=== PATIENT | female | born 1950 | race Caucasian/White ===

== ENCOUNTER → 2019-07-25 | Outpatient (CLI) | payer MEDICARE ==
--- NOTE | 2019-07-25 12:30 | PCVCIMAG ---
APPROVED REPORT Study performed: 07/25/2019 09:22:32 Exam: Stress Echocardiogram Indication: Abn EKG, Pre-Op clearance Patient Location: Echo lab Stress Nurse: Kiya Anderson RN Room #: 2 Status: routine Ht: 5 ft 2 in HR: 70 bpm BP: 138/74 mmHg Rhythm: LBBB Medical History Medical History: Thyroid mass,, HTN Cardiac Risk Factors: HTN Previous Cardiac Procedures: none Pretest Chest Pain Characteristics: No chest pain Exercise History: Physically active Procedure The patient underwent an Exercise Stress Test using the Joe Protocol. Blood pressure, heart rate, and EKG were monitored. An Echocardiogram was performed by denture technician in four stages in quad fashion. At peak stress, four selected images were obtained and placed side by side with resting images for comparison. Stress Test Details Stress Test: Exercise stress testing was performed using a Joe protocol. HR Resting HR: 70 bpmMax Heart Rate (APMHR): 151 bpm Max HR Achieved: 200 bpmTarget HR (85% APMHR): 128 bpm % of APMHR: 132 Recovery HR: 78 bpm HR response to stress: Normal HR response to stress BP Resting BP: 138/74 mmHg Max BP: 152/80 mmHg Recovery BP: 120/74 mmHg BP response to stress: Normal blood pressure response to stress. ECG Resting ECG: Sinus Rhythm, LBBB Stress ECG: LBBB ST Change: Nondiagnostic LBBB Arrhythmia: APC's Recovery ECG: Sinus Rhythm, LBBB Recovery ST Change: Nondiagnostic LBBB Recovery Arrhythmia: PVCs,short runs Clinical Reason for Termination: Maximal effort Stress Symptoms: fatigue, leg weakness during VT Exercise duration: 6 min 32 sec Exercise capacity: 8.6 METs Overall Exercise Capacity for Age: Good Scale: Active Angina Score: None No complications. Stress ECG Conclusion Clinical: Non-ischemic ECG: Nondiagnostic due to left bundle branch block Pre-Stress Echo The resting Echocardiogram showed abnormal left ventricular contractility with an estimated Ejection Fraction of about 40-45%. The resting Echocardiogram demonstrated wall motion abnormality in the discordant septal motion . Post-Stress Echo The stress Echocardiogram showed abnormal left ventricular contractility with an estimated Ejection Fraction of about 25-30%. The stress Echocardiogram demonstrated wall motion abnormality in the global hypokinesis with LV enlargement . Conclusion Clinical Response: Non-ischemic Exercise Capacity: Average Stress ECG Response: Indeterminant Stress Echo Images: Ischemic Suggest myocardial perfusion imaging, scheduled. No regurgitation or stenosis present on pulmonic,tricuspid and aortic valves. Mild to moderate regurgitation. Mild left ventricular dysfunction preexercise, LV dilatation post exercise with prominent discordant motion. Consider coronary artery disease versus left bundle branch block cardiomyopathy No prior study available for comparison. <Conclusion> Suggest myocardial perfusion imaging, scheduled. No regurgitation or stenosis present on pulmonic,tricuspid and aortic valves. Mild to moderate regurgitation. Mild left ventricular dysfunction preexercise, LV dilatation post exercise with prominent discordant motion. Consider coronary artery disease versus left bundle branch block cardiomyopathy
== END | disposition home or self-care (01) ==
LOC: PCVCIMAG 08:57
PROVIDERS: ATTEND Nurse Practitioner
DX: Z01.818 Encounter for other preprocedural examination (principal); R94.31 Abnormal electrocardiogram [ECG] [EKG]; I10 Essential (primary) hypertension; Z87.891 Personal history of nicotine dependence
CPT/HCPCS: 93325; 93351

== ENCOUNTER → 2019-08-15 | Outpatient (CLI) | payer MEDICARE ==
[~2019-08-15] MED LIST: REGADENOSON 0.4 MG/5 ML DISP.SYRIN. IV ONE
--- NOTE | 2019-08-15 16:08 | PCVCIMAG ---
APPROVED REPORT Imaging Protocol: Rest Tc-99m/Stress Tc-99m 1 day Study performed: 08/15/2019 10:46:06 Indication: Pre-Operative CV evaluation, Abnormal EKG, Abnormal SE, LBBB Patient Location: Out-Patient Stress Nurse: Angela Sandoval RN, Kiya Anderson RN [place] Tech:RAQUEL Maxwell Ht: 5 ft 2 in Wt: 103 lbs BSA: 1.44 m2 HR: 74 bpm BP: 174/80 mmHg BMI: 18.8 Rhythm: Sinus Rhythm, LBBB, Aberrant PAC's Medical History Medical History: HTN, Former Smoker Medications: Carvedilol, Lisinopril Allergies: No known drug allergies Cardiac Risk Factors: Age Pretest Chest Pain Characteristics: No chest pain Meds Held (24 hrs): Carvedilol Resting Data Rest SPECT myocardial perfusion imaging was performed in supine position 45 minutes following the intravenous injection of 10.9 mCi of Tc-99m Sestamibi. Time of rest injection: 1000 Date: 08/15/2019 Administration Route: IV Administration Site: Right AC Pharmacologic Stress Pharmacologic stress test was performed by injecting Regadenoson 0.4 mg IV push over 10-15 seconds immediately followed by the intravenous injection of 34.9 mCi of Tc-99m Sestamibi. Time of stress injection: 1130 Date: 08/15/2019 Administration Route: IV Administration Site: Right AC Gated Stress SPECT was performed 45 minutes after stress injection. The images were gated to evaluate regional wall motion and calculate left ventricular ejection fraction. Stress Test Details Stress Test: Pharmacologic stress was paired with low level exercise. Reason for pharmacologic stress test: LBBB. HRMax Heart Rate (APMHR): 151 bpm Resting HR: 74 bpmTarget HR (85% APMHR): 128 bpm Max HR Achieved: 108 bpm % of APMHR: 71 Recovery HR: 86 bpm BP Resting BP: 174/80 mmHg Max BP: 196/92 mmHg Recovery BP: 179/84 mmHg ECG Resting ECG: Sinus Rhythm, LBBB Stress ECG: Sinus Rhythm, LBBB ST Change: Nondiagnostic LBBB Arrhythmia: PAC's, PVC's Recovery ECG: Sinus Rhythm, LBBB Recovery ST Change: Nondiagnostic LBBB Recovery Arrhythmia: VPC Clinical Reason for Termination: Completed protocol Stress Symptoms: Leg Fatigue Exercise duration: 4 min 00 sec Exercise capacity: 1.6 METs Symptoms resolved during recovery. Stress ECG Conclusion Clinical: Non-ischemic EKG: Nondiagnostic due to left bundle branch block Study Quality Study: Good Study Data Post stress, the left ventricular ejection was 39%.. SSS: 0 SRS: 1 SDS: 0 TID = 1.09. Perfusion No evidence of stress induced ischemia or prior myocardial infarction. Wall Motion Mild/moderately decreased left ventricular systolic function. Nuclear Conclusion No evidence of stress induced ischemia or prior myocardial infarction. Post stress, the left ventricular ejection was 39%. No prior study available for comparison. Interpreted by: Jesus Cordova MD Electronically Approved: 08/15/2019 14:45:37 <Conclusion> Clinical: Non-ischemic EKG: Nondiagnostic due to left bundle branch block
== END ==
LOC: PCVCIMAG 09:55
PROVIDERS: ATTEND Internal Medicine
DX: Z01.818 Encounter for other preprocedural examination (principal); I42.0 Dilated cardiomyopathy; I10 Essential (primary) hypertension; I44.7 Left bundle-branch block, unspecified; E78.5 Hyperlipidemia, unspecified; E07.9 Disorder of thyroid, unspecified; R94.31 Abnormal electrocardiogram [ECG] [EKG]; R93.1 Abnormal findings on diagnostic imaging of heart and coronary circulation
CPT/HCPCS: 78452; 80061; 93017; A9500; G0463; J2785